=== PATIENT | male | born 1975 | race Caucasian/White ===

== ENCOUNTER 2017-05-20 13:28 | Emergency (ER) | payer SELFPAY ==
[~2017-05-20] VITALS: Ht 182.9 cm; Wt 90.7 kg
[2017-05-20 13:34] VITALS: BP 142/101
--- NOTE | 2017-05-20 13:53 | PHYS DOC ---
Past Medical History Past Medical History: No Pertinent History Past Surgical History: No Surgical History Alcohol Use: None Drug Use: None Adult General Chief Complaint Chief Complaint: DENTAL PROBLEM HPI HPI Patient is a 42 year old male presents to the [facility] presents to the emergency department stating that he has been having right upper dental pain and discomfort. He states that he went into a walk-in dental clinic and was provided with Tylenol 3 and clindamycin. Patient states he's been on the clindamycin for the last 3 days with no improvement. He is requesting to have the antibiotic changed. Patient states that he is worried about the swelling in the infection. He denies fever, chills or any nausea vomiting. He does state that he has a foul taste in the mouth. He states that this all started when he fractured a tooth. Review of Systems Review of Systems Constitutional: Denies fever or chills [] Eyes: Denies change in visual acuity, redness, or eye pain [] HENT: Denies nasal congestion or sore throat. C/o dental pain Respiratory: Denies cough or shortness of breath [] Cardiovascular: No additional information not addressed in HPI [] GI: Denies abdominal pain, nausea, vomiting, bloody stools or diarrhea [] : Denies dysuria or hematuria [] Musculoskeletal: Denies back pain or joint pain [] Integument: Denies rash or skin lesions [] Neurologic: Denies headache, focal weakness or sensory changes [] Endocrine: Denies polyuria or polydipsia [] Allergies Allergies Allergies Coded Allergies Type Severity Reaction Last Updated Verified No Known Drug Allergies 08/05/15 No Physical Exam Physical Exam Constitutional: Well developed, well nourished, no acute distress, non-toxic appearance. [] HENT: Normocephalic, atraumatic, bilateral external ears normal, oropharynx moist, no oral exudates, nose normal. Patient with left tympanic membrane. Normal. Right tympanic membrane being slightly red. Patient does have swelling noted on the right side of the upper and lower jaw area. Patient appears to have a tooth that has been broken off down to the gumline. The gumline appears to be slightly red and tender. Eyes: PERRLA, EOMI, conjunctiva normal, no discharge. [] Neck: Normal range of motion, no tenderness, supple, no stridor. [] Cardiovascular:Heart rate regular rhythm, no murmur [] Lungs & Thorax: Bilateral breath sounds clear to auscultation [] Skin: Warm, dry, no erythema, no rash. [] Extremities: No tenderness, no cyanosis, no clubbing, ROM intact, no edema. [] Neurologic: Alert and oriented X 3, normal motor function, normal sensory function, no focal deficits noted. [] Psychologic: Affect normal, judgement normal, mood normal. [] Current Patient Data Vital Signs Vital Signs Date Time Temp Pulse Resp B/P (MAP) Pulse Ox O2 Delivery O2 Flow Rate FiO2 05/20/17 13:34 98.1 110 18 98 Room Air 98.1 EKG EKG [] Radiology/Procedures Radiology/Procedures [] Course & Med Decision Making Course & Med Decision Making Pertinent Labs and Imaging studies reviewed. (See chart for details) Spoke with patient regards to providing him with amoxicillin 500 mg 4 times a day. Patient states that he believes that that should help to be fine. He continued to state that he is unable to brush his teeth due to the pain and discomfort. Explained to patient that he'll need to do warm salt water mouth rinses 5 times a day. Patient states he still has Tylenol 3 at home. Upon the provider leaving the room patient states that he is asking for something stronger than the Tylenol 3 as it is not helping. Spoke with the patient in regards to the infection and the amoxicillin helping with the pain and discomfort that he may continue with the Tylenol 3 and ibuprofen. Patient had agreed with the discharge instructions at that time. However once the provider made to the desk to complete the charting and documentation to discharge the patient he has come out to the desk and states that he is going to leave as he feels that he needs to have some stronger for pain. [] Dragon Disclaimer Dragon Disclaimer This electronic medical record was generated, in whole or in part, using a voice recognition dictation system. Departure Departure Impression: Primary Impression: Pain, dental Additional Impression: Left against medical advice Disposition: 07 AGAINST MEDICAL ADVICE Condition: STABLE Referrals: NO PCP (PCP) Problem Qualifiers SEUN RAWLS APRN May 20, 2017 13:53
== END 2017-05-20 13:47 | disposition left against medical advice (07) ==
LOC: ER 13:28
DX: K08.89 Other specified disorders of teeth and supporting structures (principal)
CPT/HCPCS: 99281

== ENCOUNTER 2018-03-15 20:20 | Emergency (ER) | payer SELFPAY ==
[~2018-03-15] VITALS: Ht 182.9 cm; Wt 100.0 kg
[2018-03-15 20:54] VITALS: BP 139/105
[2018-03-15 20:54] LABS: BASO % 1 % (0-3); EOS # 0.1 x10^3/uL (0.0-0.7); EOS % 2 % (0-3); HEMATOCRIT 51.9 % (39.0-53.0); HEMOGLOBIN 17.9 g/dL (13.0-17.5); LYMPH # 2.6 x10^3/uL (1.0-4.8); LYMPH % 36 % (24-48); MEAN CORPUSCULAR HEMOGLOBIN 29 pg (25-35); MEAN CORPUSCULAR HGB CONC 35 g/dL (31-37); MEAN CORPUSCULAR VOLUME 83 fL (79-100); MONO # 0.7 x10^3/uL (0.0-1.1); MONO % 9 % (0-9); NEUT # 3.8 x10^3uL (1.8-7.7); NEUT % 52 % (31-73); PLATELET COUNT 427 x10^3/uL (140-400); RED BLOOD COUNT 6.22 x10^6/uL (4.30-5.70); RED CELL DISTRIBUTION WIDTH 15.2 % (11.5-14.5); WHITE BLOOD COUNT 7.3 x10^3/uL (4.0-11.0)
--- NOTE | 2018-03-15 20:56 | PHYS DOC ---
Past Medical History Past Medical History: No Pertinent History Past Surgical History: No Surgical History Alcohol Use: None Drug Use: None Adult General Chief Complaint Chief Complaint: CHEST PAIN HPI HPI 42-year-old male presents to ER for c/o rt side CP which started around 6:30-7 p.m. Pt reports he had just returned home from the store and sat down when the pain started. He reports it was heavy in nature and denies pain radiated into neck/extremities/back. Pt denies SOA or palpitations. Pt denies N/V. He reports he did feel sweaty. He reports he has had increased stress and anxiety/ depression as he is looking forward to holidays- as both his mom and sister 2 years ago. He reports he has been thinking of them and feels more anxious. Pt reports he has had good appetite and been urinating without sxs. He reports he has had regular BMs. Pt reports when pain started it was 9-10/10. During initial exam with pt he reports chest heaviness and sxs have subsided since arriving to ER. Pt denies taking any OTC pain meds or aspirin when pain started or [employer] to ER. Pt denies family CAD hx. He denies any recent travel or past hx blood clots. He reports he has been told he had borderline HTN- initial BP 151/113 and during this exam repeat BP 138/105. Pt is 1ppd smoker of cigarettes. Review of Systems Review of Systems Constitutional: Denies fever or chills [] Eyes: Denies change in visual acuity, redness, or eye pain [] HENT: Denies nasal congestion or sore throat [] Respiratory: Denies cough or shortness of breath [] Cardiovascular: Reports right-sided chest pain and denies palpitations GI: Denies abdominal pain, nausea, vomiting, bloody stools or diarrhea [] : Denies dysuria or hematuria [] Musculoskeletal: Denies back pain or joint pain [] Integument: Denies rash or skin lesions. Denies swelling. Reports was "sweaty" when pain started Neurologic: Denies headache, focal weakness or sensory changes [] All other systems were reviewed and found to be within normal limits, except as documented in this note. Current Medications Current Medications Current Medications Medications (Trade) Dose Ordered Sig/Nic Start Time Stop Time Status Last Admin Dose Admin Aspirin (Children'S Aspirin) 324 mg 1X ONCE 03/15/18 21:15 03/15/18 21:16 DC 03/15/18 20:53 324 MG Allergies Allergies Allergies Coded Allergies Type Severity Reaction Last Updated Verified No Known Drug Allergies 08/05/15 No Physical Exam Physical Exam Constitutional: Well developed, well nourished, no acute distress, non-toxic appearance. [] HENT: Normocephalic, atraumatic, bilateral ears normal, oropharynx moist, mucous membranes pink/moist, nose normal. [] Eyes: PERRLA, conjunctiva normal, no discharge. [] Neck: Normal range of motion, no tenderness, supple, no gross adenopathy Cardiovascular:Heart rate regular rhythm, no murmur [] Lungs & Thorax: Bilateral breath sounds clear to auscultation. Resp. equal/ nonlabored. No chest wall deformity or tenderness on palp. Abdomen: Bowel sounds normal, soft, no tenderness, no masses, no pulsatile masses. [] Skin: Warm, dry, no erythema, no rash. [] Back: No tenderness, no CVA tenderness. [] Extremities: No tenderness, no cyanosis, no clubbing, ROM intact, no edema. [] Neurologic: Alert and oriented X 3, normal motor function, normal sensory function, no focal deficits noted. [] Psychologic: Affect normal, judgement normal, anxious and appears tense on initial exam. No uncontrollable behavior. Denies any SI. Current Patient Data Vital Signs Vital Signs Date Time Temp Pulse Resp B/P (MAP) Pulse Ox O2 Delivery O2 Flow Rate FiO2 03/15/18 20:54 80 20 139/105 (116) 99 03/15/18 20:22 98.2 Room Air 98.2 Lab Values Laboratory Tests Test 03/15/18 20:28 White Blood Count 7.3 x10^3/uL (4.0-11.0) Red Blood Count 6.22 x10^6/uL (4.30-5.70) H Hemoglobin 17.9 g/dL (13.0-17.5) H Hematocrit 51.9 % (39.0-53.0) Mean Corpuscular Volume 83 fL (79-100) Mean Corpuscular Hemoglobin 29 pg (25-35) Mean Corpuscular Hemoglobin Concent 35 g/dL (31-37) Red Cell Distribution Width 15.2 % (11.5-14.5) H Platelet Count 427 x10^3/uL (140-400) H Neutrophils (%) (Auto) 52 % (31-73) Lymphocytes (%) (Auto) 36 % (24-48) Monocytes (%) (Auto) 9 % (0-9) Eosinophils (%) (Auto) 2 % (0-3) Basophils (%) (Auto) 1 % (0-3) Neutrophils # (Auto) 3.8 x10^3uL (1.8-7.7) Lymphocytes # (Auto) 2.6 x10^3/uL (1.0-4.8) Monocytes # (Auto) 0.7 x10^3/uL (0.0-1.1) Eosinophils # (Auto) 0.1 x10^3/uL (0.0-0.7) Basophils # (Auto) 0.0 x10^3/uL (0.0-0.2) Sodium Level 137 mmol/L (136-145) Potassium Level 3.9 mmol/L (3.5-5.1) Chloride Level 99 mmol/L (98-107) Carbon Dioxide Level 33 mmol/L (21-32) H Anion Gap 5 (6-14) L Blood Urea Nitrogen 18 mg/dL (8-26) Creatinine 1.1 mg/dL (0.7-1.3) Estimated GFR (Cockcroft-Gault) 73.1 BUN/Creatinine Ratio 16 (6-20) Glucose Level 106 mg/dL (70-99) H Calcium Level 10.3 mg/dL (8.5-10.1) H Magnesium Level 2.1 mg/dL (1.8-2.4) Total Bilirubin 0.4 mg/dL (0.2-1.0) Aspartate Amino Transferase (AST) 25 U/L (15-37) Alanine Aminotransferase (ALT) 53 U/L (16-63) Alkaline Phosphatase 84 U/L (46-116) Creatine Kinase 68 U/L (39-308) Creatine Kinase MB (Mass) 1.2 ng/mL (0.0-3.6) Creatine Kinase MB Relative Index % (0-4) Troponin I Quantitative < 0.017 ng/mL (0.000-0.055) [id number]-M-Type Natriuretic Peptide 72 pg/mL (0-124) Total Protein 9.9 g/dL (6.4-8.2) H Albumin 4.4 g/dL (3.4-5.0) Albumin/Globulin Ratio 0.8 (1.0-1.7) L Lipase 135 U/L (73-393) Laboratory Tests 03/15/18 20:28 Laboratory Tests 03/15/18 20:28 EKG EKG EKG obtained 03/15/18 at [address] Smith Sinus rhythm Leftward axis Nonspecific T wave abnorm. Vent rate 83 Radiology/Procedures Radiology/Procedures HISTORY: Right-sided chest pain The heart size and pulmonary vascularity are normal. There is minimal linear atelectasis or scarring in the right parahilar region. No pulmonary consolidation is seen. There is no evidence of pleural fluid. IMPRESSION: Minimal right perihilar linear atelectasis or scarring. Electronically signed by: Margie Samuels MD (03/16/2018 9:29 AM) [facility] DICTATED and SIGNED BY: MARGIE SAMUELS MD DATE: 03/16/18926 Course & Med Decision Making Course & Med Decision Making Pertinent Labs and Imaging studies reviewed. (See chart for details) 2215: Discussed test results with pt. Pt reports he has had no CP since arriving and feels his sxs were r/t stress and anxiety. His EKG had no acute ST elevation/STEMI and troponin was <0.017. Chest xray with no acute findings. Discussed with onset of sxs at approx. 7 p.m. repeat troponin would be done to further r/o ACS as he is not wanting to be admitted. Discussed if test was NL then he would be discharged home with clinic/physician referral information to assist with establishing a PCP for his anxiety and borderline HTN. Pt is not wanting to have any additional tests done and is requesting home discharge at this time. Pt reports at this time that he has had intermittent rt side CP over the past couple days and feels when the pain starts he is feeling anxious. Initially pt had not reported pain had been ongoing for past couple of days. Indepth conversation had with pt regarding need to establish PCP for further eval/care and re-evaluation of BP. Pt had improved BP to 138/105 and with hx of borderline HTN strongly advised on need for monitoring. Will provide community resources for clinics/physicians to follow-up with. At time of discussion pt is in no visible distress reporting he feels less anxious. Pt denies any SI/ depression. Discharge instructions discussed and education provided on signs and symptoms to return to ER for. Smoking cessation was discussed. Patient is agreeable with discharge plan. Pt's case and plan of care was discussed with Dr. Smith. Tello Disclaimer Tello Disclaimer This electronic medical record was generated, in whole or in part, using a voice recognition dictation system. Departure Departure Impression: Primary Impression: Chest pain Additional Impression: Anxiety Disposition: HOME, SELF-CARE Condition: STABLE Referrals: NO PCP (PCP) Patient Instructions: Anxiety and Panic Attacks, Chest Pain (Nonspecific) Additional Instructions: You have history of borderline hypertension (elevated blood pressure) and while in the Emergency Department your blood pressure was 138/105. You need to get established with a primary doctor for re-evaluation and further care. You are being provided with local clinics and options for physicians- call as soon as possible for appointment. Problem Qualifiers JULI HUANG APRN Mar 15, 2018 20:56
[2018-03-15 21:04] LABS: CALCIUM 10.3 mg/dL (8.5-10.1); CREATININE 1.1 mg/dL (0.7-1.3); GFR 73.1; POTASSIUM 3.9 mmol/L (3.5-5.1)
[2018-03-15 21:09] LABS: ALBUMIN 4.4 g/dL (3.4-5.0); ALBUMIN/GLOBULIN RATIO 0.8 (1.0-1.7); MAGNESIUM 2.1 mg/dL (1.8-2.4); TOTAL BILIRUBIN 0.4 mg/dL (0.2-1.0); TOTAL PROTEIN 9.9 g/dL (6.4-8.2)
[2018-03-15] MEDS ORDERED: ASPIRIN CHEWABLE 81 MG TABLET. PO ONE (21:15)
[2018-03-15 21:17] LABS: CREATINE KINASE 68 U/L (39-308)
--- NOTE | 2018-03-15 23:50 | EKG ---
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
--- NOTE | 2018-03-16 09:33 | RAD ---
Chest, 2 views, 03/15/2018: HISTORY: Right-sided chest pain The heart size and pulmonary vascularity are normal. There is minimal linear atelectasis or scarring in the right parahilar region. No pulmonary consolidation is seen. There is no evidence of pleural fluid. IMPRESSION: Minimal right perihilar linear atelectasis or scarring. Electronically signed by: Angel Luis Samuels MD (03/16/2018 9:29 AM) [facility]
== END 2018-03-15 22:50 | disposition home or self-care (01) ==
LOC: ER 20:20
DX: R07.89 Other chest pain (principal); F41.9 Anxiety disorder, unspecified
CPT/HCPCS: 36415; 71046; 80053; 82553; 83690; 83735; 83880; 84484; 85025; 93005; 99285-25